=== PATIENT | female | born 2000 | race Caucasian/White ===

== ENCOUNTER 2023-04-23 10:03 | Emergency (ER) | payer OTHER, SELFPAY ==
[2023-04-23 10:17] VITALS: BP 134/74; PULSE 96; RESP 18; TEMP 36.9; O2SAT 97
--- NOTE | 2023-04-23 10:39 | ED.URI ---
HPI - URI/Sore Throat General Chief Complaint: Upper Respiratory Infection Stated Complaint: cough/sob Time Seen by Provider: 04/23/23 10:42 Source: patient Mode of arrival: ambulatory Limitations: no limitations History of Present Illness HPI Narrative: 22 y/o female presented for c/o cough for about 6 days. States she has been intermittently sob while at rest, feels like chest gets tight. Denies wheezing, n/v/d/f/c. Taking Mucinex. Related Data Home Medications Medication Instructions Recorded Confirmed carbamazepine 100 mg chewable 50 mg PO QAM 04/23/23 04/23/23 tablet lisdexamfetamine 30 mg capsule 30 mg PO DAILY 04/23/23 04/23/23 (Vyvanse) norgestimate 0.25 mg-ethinyl 1 tablet PO DAILY 04/23/23 04/23/23 estradiol 35 mcg tablet (Estarylla) trazodone 50 mg tablet 50 mg PO QHS 04/23/23 04/23/23 Allergies Allergy/AdvReac Type Severity Reaction Status Date / Time No Known Allergies Allergy Verified 04/23/23 10:42 Review of Systems Review of Systems: CONSTITUTIONAL: Denies body aches, fever, chills, or sweats. EYES: Denies visual changes, redness, or discharge. ENT: Denies rhinorrhea, congestion, sore throat, or otalgia. CARDIOVASCULAR: Denies chest pain, palpitations, or edema. RESPIRATORY: Reports cough, denies sob, wheezing. GASTROINTESTINAL: Denies abdominal pain, nausea, vomiting, or diarrhea. SKIN: Denies rash, itching, or wounds. MUSCULOSKELETAL: Denies back pain, joint pain, or myalgia. NEUROLOGIC: Denies headache, numbness, tingling, or weakness. All systems reviewed & are unremarkable except as noted in HPI and below PMFSH Past Medical History Medical History (Updated 04/23/23 @ 10:54 by Cindy Viera APRN) No pertinent past medical history Comments At time of signature, I have reviewed and agree with nursing past medical, surgical, social and family history unless otherwise noted. Please see nursing chart for further information. There is no relevant family history pertinent to the presenting complaint Exam Narrative: GENERAL: mildly ill-appearing, in no acute distress. EYES: EOMI. No redness or drainage. Conjunctivae normal. ENT: Mucous membranes pink and moist. No rhinorrhea. TMs normal bilaterally. Throat normal. Uvula midline. NECK: Normal AROM. Supple. CHEST: No respiratory distress. lungs clear to all harry. frequent quality system manager cough HEART: Regular rate and rhythm. No murmur appreciated. ABDOMEN: Soft, nontender, nondistended, normal active bowel sounds. EXTREMITIES: Normal range of motion. No edema. SKIN: Warm, dry, no rash. Capillary refill normal. Normal skin turgor. NEURO: Alert and oriented x3. Gait steady. PSYCH: Normal affect. Course Course Emergency Course: Patient is aware of diagnosis, understands and agrees to treatment plan. Anticipatory guidance given. Patient agrees to follow-up as directed and is aware of reasons to seek care at the emergency department. Portions of this record may have been created with voice recognition software Level of Care: Express Care Visit Vital Signs Vital signs: Vital Signs Temperature 98.4 F 04/23/23 10:17 Pulse Rate 96 04/23/23 10:17 Respiratory Rate 18 04/23/23 10:17 Blood Pressure 134/74 04/23/23 10:17 Pulse Oximetry 97 04/23/23 10:17 Oxygen Delivery Room Air 04/23/23 10:17 Temperature 98.4 F 04/23/23 10:17 Pulse Rate 96 04/23/23 10:17 Respiratory Rate 18 04/23/23 10:17 Blood Pressure 134/74 04/23/23 10:17 Pulse Oximetry 97 04/23/23 10:17 Oxygen Delivery Room Air 04/23/23 10:17 MDM - URI/Sore Throat MDM Narrative Medical decision making narrative: flu and covid neg. Discussed physical exam findings. Advised supportive measures and signs/symptoms to go to the ER. Pt is appropriate for outpt treatment and f/u. Differential Diagnosis Differential diagnosis: Likely upper respiratory infection, otitis media, sinusitis, viral infection, bronchitis, i
== END 2023-04-23 10:55 | disposition home or self-care (01) ==
PROVIDERS: Emergency Provider Nurse Practitioner Family
DX: J40 Bronchitis, not specified as acute or chronic (principal); Z79.899 Other long term (current) drug therapy; Z20.822 Contact with and (suspected) exposure to COVID-19
CPT/HCPCS: 87426; 87804; 99213; C9803; G0463

== ENCOUNTER 2024-01-03 15:14 | Emergency (ER) | payer OTHER, SELFPAY ==
--- NOTE | ~2024-01-03 | XR_ITS ---
EXAMINATION: XR elbow RT min 3V DATE: 01/03/2024 15:54 INDICATION: Anterior swelling and bruising at the right elbow post twisting injury TECHNIQUE: Anteroposterior, two oblique and lateral views of the right elbow were obtained. COMPARISON: None. FINDINGS: Alignment is normal. No fracture or joint effusion. Joint spaces are normal. Soft tissue swelling wit h subcutaneous edema along the anterior medial aspect of the right elbow and proximal forearm. IMPRESSION: 1. No right elbow joint effusion or osseous abnormality. Reviewed, dictated and finalized at location A.
[2024-01-03 15:21] VITALS: BP 145/66; PULSE 75; RESP 16; TEMP 37.1; O2SAT 100
--- NOTE | 2024-01-03 16:08 | ED.UPPEXIN ---
HPI - Extremity Injury (Upper) General Chief Complaint: Extremity Injury, Upper Stated Complaint: Right Arm Injury Source: patient Mode of arrival: ambulatory Limitations: no limitations History of Present Illness HPI narrative: Patient presents for evaluation of pain, swelling, bruising to the right upper extremity. Symptom onset yesterday. She was going down a slip n'slide and got her arm caught on the tarp. She states at rest she has minimal pain but with palpation of the affected area her pain increases to a rating of 7/10. No loss of ROM. She took ibuprofen for her symptoms. She has been icing the area. She is right hand dominant. Denies other injuries. Related Data Home Medications Medication Instructions Recorded Confirmed carbamazepine 100 mg chewable 50 mg PO QAM 04/23/23 04/23/23 tablet lisdexamfetamine 30 mg capsule 30 mg PO DAILY 04/23/23 04/23/23 (Vyvanse) norgestimate 0.25 mg-ethinyl 1 tablet PO DAILY 04/23/23 04/23/23 estradiol 35 mcg tablet (Estarylla) trazodone 50 mg tablet 50 mg PO QHS 04/23/23 04/23/23 Nexplanon 01/03/24 Allergies Allergy/AdvReac Type Severity Reaction Status Date / Time No Known Allergies Allergy Verified 01/03/24 15:27 Review of Systems Review of Systems: CONSTITUTIONAL: Denies fever, chills, or sweats. EYES: Denies visual changes, redness, or discharge. ENT: Denies rhinorrhea, congestion, sore throat, or otalgia. CARDIOVASCULAR: Denies chest pain, palpitations, or edema. RESPIRATORY: Denies cough or dyspnea. GASTROINTESTINAL: Denies abdominal pain, nausea, vomiting, or diarrhea. GENITOURINARY: Denies dysuria or hematuria. SKIN: Reports bruising to the right upper extremity MUSCULOSKELETAL: Reports pain and swelling in the right upper extremity. NEUROLOGIC: Denies headache, numbness, dizziness, or weakness. PSYCHIATRIC: Denies anxiety or depression. [facility] Past Medical History Medical History (Updated 01/03/24 @ 16:10 by Ugo Jay, JAYNE, CRISTI) No pertinent past medical history Surgical History Surgical History No pertinent past surgical history Family History Family History Mother Family history non-contributory Social History Social History Smoking status: Never smoker Alcohol use details: rare Substance use: never Gender identity (if verbalized by the patient): Female Spiritual care concerns: No Exam Narrative: GENERAL: Well-appearing, well-nourished, and in no acute distress. HEAD: Normocephalic, atraumatic. EYES: PERRLA and EOMI. ENT: Nares clear, no rhinorrhea or epistaxis. Mucous membranes moist. Oropharynx without tonsillar hypertrophy exudate or other lesions. Bilateral TMs pearly pittman nonbulging NECK: Supple. No adenopathy or masses. No carotid bruits or JVD CHEST: Clear to auscultation. No respiratory distress. No wheezes rales or rhonchi HEART: Regular rate and rhythm. No murmur heard. Normal peripheral pulses. ABDOMEN: Soft, nontender, nondistended, normal active bowel sounds. EXTREMITIES: There is soft tissue swelling noted to proximal right forearm and distal right humerus with associated tenderness. Full ROM of right elbow. No crepitus or deformity. Able to pronate supinate the right arm SKIN: Ecchymosis noted to the distal right humerus, over the antecubital region and proximal right forearm NEURO: No focal deficits. Alert and oriented x3. PSYCH: Normal mood and affect. Course Course Emergency Course: This is a 23-year-old female who presented for evaluation of an injury to the right upper extremity. X-ray negative fracture. Exam is consistent contusion and hematoma. Recommend NSAIDs for pain and swelling. Elevate extremity to assist with swelling. Follow up with primary care provider. Go to the ER for worsening sy
== END 2024-01-03 16:04 | disposition home or self-care (01) ==
PROVIDERS: Emergency Provider Nurse Practitioner
DX: S40.021A Contusion of right upper arm, initial encounter (principal); S50.11XA Contusion of right forearm, initial encounter; X58.XXXA Exposure to other specified factors, initial encounter
CPT/HCPCS: 73080; 99213; G0463

== ENCOUNTER 2024-07-04 16:56 | Emergency (ER) | payer OTHER, SELFPAY ==
[2024-07-04 17:01] VITALS: BP 101/58; PULSE 93; RESP 20; TEMP 36.8; O2SAT 100
--- NOTE | 2024-07-04 17:04 | ED.URI ---
HPI - URI/Sore Throat General Chief Complaint: Upper Respiratory Infection Stated Complaint: sinus pressure face Time Seen by Provider: 07/04/24 17:05 Source: patient and RN notes reviewed Mode of arrival: ambulatory Limitations: no limitations History of Present Illness HPI Narrative: 23 y/o female presented for c/o sore throat, headache, sinus pressure/congestion, cough. Onset yesterday. Denies sob, wheezing, n/v/d/f/c. Took Tylenol and ibuprofen without improvement in the headache. MD elicited complaint: cough Related Data Home Medications ?Medication ?Instructions ?Recorded ?Confirmed ?Last Taken ?Type No Home Medications 07/04/24 Unknown History Allergies Allergy/AdvReac Type Severity Reaction Status Date / Time No Known Allergies Allergy Verified 07/04/24 17:06 Review of Systems Review of Systems: per [facility] Past Medical History Medical History (Updated 07/04/24 @ 17:22 by Cindy Viera, DANCE COSTUME DESIGNER) No pertinent past medical history Surgical History Surgical History No pertinent past surgical history Family History Family History Mother Family history non-contributory Social History Social History Smoking status: Never smoker Alcohol use details: rare Substance use: never Gender identity (if verbalized by the patient): Female Spiritual care concerns: No Exam Narrative: GENERAL: Mildly Ill-appearing, no acute distress. EYES: conjunctivae clear ENT: Mucous membranes moist. TM pearly pittman with normal light reflex bilaterally; no tragal tenderness. No drooling, no hoarseness, no trismus, uvula midline. No tripod positioning, hot potato voice, or soft palate swelling. NECK: Supple. No lymphadenopathy CHEST: Clear to auscultation, breath sounds equal. No respiratory distress, speaks in full sentences. HEART: Regular rate and rhythm. No murmur heard. SKIN: Warm, dry, no rash. NEURO: Alert and oriented x3. Course Course Emergency Course: Patient is aware of diagnosis, understands and agrees to treatment plan. Anticipatory guidance given. Patient agrees to follow-up as directed and is aware of reasons to seek care at the emergency department. Portions of this record may have been created with voice recognition software Level of Care: Express Care Visit Vital Signs Vital signs: reviewed MDM - URI/Sore Throat MDM Narrative Medical decision making narrative: POS covid. result reviewed with pt. Advise supportive treatments. Patient is appropriate for outpatient treatment and follow-up. Differential Diagnosis Differential diagnosis: Likely upper respiratory infection, viral infection and pharyngitis Discharge Plan Discharge Clinical Impression: COVID-19 Patient Disposition: Home, Self-Care Condition: Stable Instructions: COVID-19 (Coronavirus Disease 2019) (ED) Additional Instructions: Your rapid COVID test was positive today. The following updated recommendations have been made by the CDC and local Health Departments, regarding COVID-19: - When people get sick with a respiratory virus, they stay home and away from others. - Return to normal activities when, for at least 24 hours, symptoms are improving overall, and if a fever was present, it has been gone without use of a fever-reducing medication. - Once people resume normal activities, they are encouraged to take additional prevention strategies for the next 5 days to curb disease spread, such as taking more steps for apron cleaner air, enhancing hygiene practices, wearing a well-fitting mask, keeping a distance from others, and/or getting tested for respiratory viruses. - Enhanced precautions are especially important to protect those most at risk for severe illness, including those over 65 and people with weakened immune systems. - Follow with your employer for return to work guidelines and restrictions Rest, stay hydrated. Tylenol and ibuprofen every 8 hours as needed Flonase/nasal spray, Zyrtec, cough syrup cold/flu medications for symptoms as needed Follow up with your primary care provider, call to schedule an appointment. Go to the ER for worsening symptoms or concerns. Patient Language: Grenadian Prescriptions: No Action No Home Medications Follow-up/Referrals: PHYSICIAN,BREAKER TENDER [Primary Care Provider] - Stand Alone Forms: Work/School Release IP Time of Disposition: 17:23
[2024-07-04 17:25] LABS: EDCOVIDSCREEN Positive (Negative); EDINFLUASCREEN Negative (Negative); EDINFLUBSCREEN Negative (Negative); EDSTREPNEGPOS1 Negative (Negative)
== END 2024-07-04 17:28 | disposition home or self-care (01) ==
PROVIDERS: Emergency Provider Nurse Practitioner Family
DX: U07.1 COVID-19 (principal)
CPT/HCPCS: 87081; 87426; 87804; 87880; 99213; G0463